=== PATIENT | male | born 1975 | race Caucasian/White ===

== ENCOUNTER 2018-11-16 01:07 | Emergency (ER) | payer MEDICAID, OTHER ==
[~2018-11-16] VITALS: Ht 170.2 cm; Wt 104.5 kg
[~2018-11-16 01:07] MED LIST: IBUP-1685 PO
[2018-11-16] MEDS ORDERED: NAPR-58 PO (01:15)
[2018-11-16] MEDS ORDERED: TraMADol HCL 50 MG TABLET PO ONE (02:15)
[2018-11-16] MEDS ORDERED: ACETAMINOPHEN 160 MG/5 ML SUSPENSION UDCUP PO ONE (02:30)
[2018-11-16 04:01] VITALS: BP 124/82
== END 2018-11-16 04:08 | disposition home or self-care (01) ==
LOC: EMS 01:07
DX: M54.5 Low back pain (principal); R20.2 Paresthesia of skin; W18.39XA Other fall on same level, initial encounter; Y93.89 Activity, other specified; Y92.89 Other specified places as the place of occurrence of the external cause; Y99.8 Other external cause status
CPT/HCPCS: 72100